=== PATIENT | male | born 1975 | race African-American/Black ===

== ENCOUNTER 2022-09-03 22:00 | Emergency (ER) | payer BC ==
[~2022-09-03] VITALS: Ht 167.6 cm; Wt 124.7 kg
--- NOTE | 2022-09-04 01:50 | NUR ---
Dr. Blanc at bedside for MSE.
[2022-09-04] MEDS ORDERED: LIDOCAINE HCL 2% 20 ML VIAL ONE (03:14)
[2022-09-04] MEDS ORDERED: LIDOCAINE HCL 2% 20 ML VIAL IJ ONE (03:15)
[2022-09-04] MEDS ORDERED: OXYC-128 PO (03:48)
--- NOTE | 2022-09-04 04:31 | NUR ---
Patient discharged to home in stable condition. Written and verbal after care instructions given. Patient verbalizes understanding of instructions. Stressed follow up or return to ER for worsening s/s. Patient out of ER with steady gait, no acute signs of distress, VSS, all belongings taken.
[2022-09-04 04:32] VITALS: BP 141/92
== END 2022-09-04 04:32 | disposition home or self-care (01) ==
LOC: ER 22:11
DX: S93.124A Dislocation of metatarsophalangeal joint of right lesser toe(s), initial encounter (principal); X50.9XXA Other and unspecified overexertion or strenuous movements or postures, initial encounter; Y92.89 Other specified places as the place of occurrence of the external cause; R03.0 Elevated blood-pressure reading, without diagnosis of hypertension; Z89.421 Acquired absence of other right toe(s)
CPT/HCPCS: 99284; 28630; 73630; 73620; J3490